=== PATIENT | male | born 1935 | race Caucasian/White ===

== ENCOUNTER → 2019-09-22 | Outpatient (RCR) | payer MEDICARE ==
[~2019-09-22] MED LIST: AMBIEN5 MG ORAL; ASPIR 8181 MG ORAL; ATORVASTATIN CA20 MG ORAL; CEPHALEXIN500 M1 ORAL; CEPHALEXIN500 MG ORAL; DICYCLOMINE HCL10 MG ORAL; FINASTERIDE5 MG ORAL; FLOMAX0.4 MG ORAL; LISINOPRIL20 MG ORAL; METOPROLOL TART25 MG ORAL; SIMETHICONE80 MG ORAL; SYNTHROID137 MCG ORAL
== END | disposition home or self-care (01) ==
LOC: WCC 11:47
DX: S87.82XA Crushing injury of left lower leg, initial encounter (principal); I11.9 Hypertensive heart disease without heart failure; I25.10 Atherosclerotic heart disease of native coronary artery without angina pectoris; E03.9 Hypothyroidism, unspecified; H91.90 Unspecified hearing loss, unspecified ear; R42 Dizziness and giddiness; Z79.899 Other long term (current) drug therapy; Z95.5 Presence of coronary angioplasty implant and graft
CPT/HCPCS: G0463

== ENCOUNTER 2019-09-24 22:19 | Emergency (ER) | payer MEDICARE, OTHER ==
[~2019-09-24] VITALS: Ht 172.7 cm; Wt 102.1 kg
[~2019-09-24 22:19] MED LIST changes: -AMBIEN5 MG ORAL; -CEPHALEXIN500 M1 ORAL
[2019-09-24 22:36] VITALS: BP 128/78
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
--- NOTE | 2019-09-24 23:05 | NUR ---
ED Nurse Note: ERMD at bedside
--- NOTE | 2019-09-24 23:07 | NUR ---
ED Nurse Note: Pt states that he does not want to be admitted to the hospital. ERMD made aware; awaiting ERMD bedside visit
--- NOTE | 2019-09-24 23:20 | NUR ---
ED Nurse Note: All blood work sent to lab
[2019-09-24 23:51] LABS: BASOPHILS % (AUTO) 0.5 % (0.0-2.0); EOSINOPHILS % (AUTO) 3.8 % (0.0-3.0); HEMATOCRIT 34.6 % (42.0-52.0); HEMOGLOBIN 11.8 G/DL (14.2-18.0); LYMPHOCYTES % (AUTO) 22.4 % (20.0-45.0); MEAN CORPUSCULAR VOLUME 91 FL (80-99); MONOCYTES % (AUTO) 10.8 % (1.0-10.0); NEUTROPHILS % (AUTO) 62.5 % (45.0-75.0); PLATELET COUNT 170 K/UL (150-450); RED BLOOD COUNT 3.78 M/UL (4.70-6.10); RED CELL DISTRIBUTION WIDTH 13.4 % (11.6-14.8); WHITE BLOOD COUNT 5.2 K/UL (4.8-10.8)
[2019-09-25 00:08] LABS: ANION GAP 5 mmol/L (5-15); BLOOD UREA NITROGEN 17 mg/dL (7-18); CALCIUM 8.4 MG/DL (8.5-10.1); CARBON DIOXIDE 30 MMOL/L (21-32); CHLORIDE 106 MMOL/L (98-107); CREATININE 1.4 MG/DL (0.55-1.30); SODIUM 141 MMOL/L (136-145)
[2019-09-25 00:13] LABS: ALANINE AMINOTRANSFERASE 19 U/L (12-78); ALBUMIN 3.4 G/DL (3.4-5.0); ALBUMIN/GLOBULIN RATIO 0.9 (1.0-2.7); ALKALINE PHOSPHATASE 65 U/L (46-116); ASPARTATE AMINO TRANSFERASE 19 U/L (15-37); BILIRUBIN,TOTAL 0.7 MG/DL (0.2-1.0)
[2019-09-25] MEDS ORDERED: Vancomycin 1.5 GM in NS 275 ML IVPB ONE (00:15)
[2019-09-25] MEDS ORDERED: Piperacillin/Tazobactam 3.375 GM in NS 110 ML IVPB ONE (00:15)
[2019-09-25 00:30] VITALS: BP 127/82
[2019-09-25 00:45] VITALS: BP 127/82
[2019-09-25] MEDS ORDERED: CEPHALEXIN500 M1 ORAL (00:45)
--- NOTE | 2019-09-25 00:45 | NUR ---
AMA: SEE AMA FORM. Pt stated, "My leg isn't bleeding anymore so I want to go home. I don't want to stay in the hospital for no reason." ERMD aware, informed pt of risks. PT aao x 4, IV and armband were removed without complications. VSS, no s/s of distress noted. Pt was given rx and advised to speak to his surgeon in the morning.
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
[2019-09-25] MEDS ORDERED: AMBIEN5 MG ORAL (12:45)
--- NOTE | 2019-09-25 13:56 | Diagnostic Imaging Report ---
Indication: Dyspnea Comparison: 09/07/2019 A single view chest radiograph was obtained. Findings: Lungs are hypoinflated. There is pulmonary vascular congestion which is noted. The heart may be mildly enlarged. IMPRESSION: Suspected mild CHF. Correlate clinically
== END 2019-09-25 00:45 | disposition left against medical advice (07) ==
LOC: EMR 23:00
DX: L03.116 Cellulitis of left lower limb (principal); Z53.29 Procedure and treatment not carried out because of patient's decision for other reasons; I10 Essential (primary) hypertension; J45.909 Unspecified asthma, uncomplicated
CPT/HCPCS: 36415; 71045; 80053; 83605; 83690; 83735; 83880; 84100; 85025; 85610; 85651; 85730; 86140; 87040; 99283

== ENCOUNTER 2019-09-25 09:56 | Inpatient (IN) | payer MEDICARE, OTHER ==
[~2019-09-25] VITALS: Ht 175.3 cm; Wt 102.1 kg
[~2019-09-25 09:56] MED LIST changes: +CEPHALEXIN500 M1 ORAL
[2019-09-25 10:05] VITALS: BP 140/82
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
[2019-09-25 11:36] LABS: BASOPHILS % (AUTO) 0.6 % (0.0-2.0); EOSINOPHILS % (AUTO) 2.5 % (0.0-3.0); HEMATOCRIT 33.8 % (42.0-52.0); HEMOGLOBIN 11.4 G/DL (14.2-18.0); MEAN CORPUSCULAR VOLUME 92 FL (80-99); MONOCYTES % (AUTO) 10.3 % (1.0-10.0); NEUTROPHILS % (AUTO) 73.6 % (45.0-75.0); PLATELET COUNT 157 K/UL (150-450); RED BLOOD COUNT 3.69 M/UL (4.70-6.10); RED CELL DISTRIBUTION WIDTH 13.3 % (11.6-14.8); WHITE BLOOD COUNT 4.4 K/UL (4.8-10.8)
[2019-09-25 11:53] LABS: ANION GAP 5 mmol/L (5-15); BLOOD UREA NITROGEN 15 mg/dL (7-18); CALCIUM 8.7 MG/DL (8.5-10.1); CARBON DIOXIDE 31 MMOL/L (21-32); CHLORIDE 106 MMOL/L (98-107); CREATININE 1.2 MG/DL (0.55-1.30); POTASSIUM 4.3 MMOL/L (3.5-5.1); SODIUM 142 MMOL/L (136-145)
[2019-09-25 11:55] LABS: ALANINE AMINOTRANSFERASE 17 U/L (12-78); ALBUMIN 3.2 G/DL (3.4-5.0); ALBUMIN/GLOBULIN RATIO 0.9 (1.0-2.7); ALKALINE PHOSPHATASE 65 U/L (46-116); ASPARTATE AMINO TRANSFERASE 18 U/L (15-37); BILIRUBIN,TOTAL 0.6 MG/DL (0.2-1.0)
[2019-09-25] MEDS ORDERED: AMBIEN5 MG ORAL (12:45)
--- NOTE | 2019-09-25 12:54 | NUR ---
REPORT GIVEN TO [facility] PATIENT IS TO BE TRANSFERD TO ROOM 414-2 [facility]
[2019-09-25] MEDS ORDERED: DiphenhydrAMINE 25mg Tab ORAL PRN (13:00)
[2019-09-25] MEDS ORDERED: LORazepam 1mg tab ORAL PRN (13:00)
[2019-09-25] MEDS ORDERED: Milk of Magnesia 30ml Ud ORAL PRN (13:00)
[2019-09-25] MEDS ORDERED: Morphine Sulfate 2mg/ml Inj(IV/IM USE ONLY) IVP PRN (13:00)
[2019-09-25] MEDS ORDERED: Miralax 17gm pkt ORAL PRN (13:00)
[2019-09-25] MEDS ORDERED: Mylanta II UD 30ml ORAL PRN (13:00)
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
--- NOTE | 2019-09-25 14:43 | Diagnostic Imaging Report ---
Indication: Left leg pain Technique: continuous helical imaging of the left leg performed from the knee through the foot.. Coronal 2-D reformatted images were also generated. Study obtained in a Siem[employer] Sensation [address] total DLP: 587.6 mGycm CTD/vol: 9.1 mGy Comparison: None Findings: There is apparent focus of ulceration vs. site of surgery in the medial part of the left mid leg. This is about 1 cm deep within the subcutaneous fat. Correlate clinically. There is no evidence of an obvious associated abscess. There is extensive reticulation and expansion of the subcutaneous fat consistent with edema. There are superficial fluid collections noted both anterior and posterior at the interface between the subcutaneous fat and the muscular groups. The study was done without intravenous contrast. Difficult to exclude interfascial or intrafascial enhancement that would typically suggest intramuscular infection/myositis. There is no evidence of any obvious abscess within the anterior or posterior compartments of the leg. Myositis is not excludable on this study. In terms of the osseous structures, there is no fracture identified. 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 There is no obvious erosion or evidence of periostitis. IMPRESSION: Apparent skin defect, possibly a wound in the medial midportion of the left leg. No obvious associated abscess. Please correlate clinically. Generalized subcutaneous edema with superficial fluid collections along the deep subcutaneous fat at the junction between the subcutaneous fat and the anterior and posterior muscle compartments. The CT scanner at [facility] is accredited by the [employer] and the scans are performed using dose optimization techniques as appropriate to a performed exam including Automatic Exposure control.
--- NOTE | 2019-09-25 14:53 | Emergency Room Report ---
History of Present Illness General Chief Complaint: Wound Recheck/Suture Removal Source: Patient Present Illness HPI Patient presents for reevaluation of his left lower leg injury reports that the area has been improving with some of the swelling and erythema however the Wound at the midpoint had opened and now leaking Patient reports that the wound had been healing well however over the past 2 days now the area opened denies any fevers denies any chest pain or shortness of breath Denies any vomiting or diarrhea denies any recent trauma or travel other than the initial episode that resulted in the injury Allergies: Coded Allergies: No Known Allergies (Unverified , 09/06/19) Patient History Past Medical History: see triage record Reviewed Nursing Documentation: PMH: Agreed; PSxH: Agreed Nursing Documentation-PM Past Medical History: No Stated History Hx Cardiac Problems: Yes Hx Hypertension: Yes Hx Asthma: Yes Hx Diabetes: No Hx Cancer: No Hx Gastrointestinal Problems: Yes Hx Neurological Problems: No Review of Systems All Other Systems: negative except mentioned in HPI Physical Exam Vital Signs Date Time Temp Pulse Resp B/P (MAP) Pulse Ox O2 Delivery O2 Flow Rate FiO2 09/25/19 09:58 97.7 80 16 140/82 (101) 91 Room Air Sp02 EP Interpretation: reviewed, normal General Appearance: well appearing, no apparent distress Head: normocephalic, atraumatic Eyes: bilateral eye PERRL, bilateral eye EOMI ENT: hearing grossly normal, EOM grossly intact Neck: supple Respiratory: lungs clear, no rhonchi Cardiovascular #1: regular rate, rhythm Gastrointestinal: non tender, soft Genitourinary: no CVA tenderness Musculoskeletal: other - Significant edema and erythema to the lower extremity the midpoint of the scab formation does appear to have opened and there is some clear discharge noted Neurologic: alert, oriented x3 Psychiatric: normal inspection Skin: other - As above Lymphatic: no adenopathy Medical Decision Making Diagnostic Impression: Primary Impression: CELLULITIES LEFT LEG ER Course Given the history and presentation multiple differentials and consideration including but not limited to abscess, Other crush type injury pathology On recommendation of specialty consultation CT imaging is obtained patient is provided with broad-spectrum antibiotics and requires inpatient care Labs Test 09/25/19 11:08 White Blood Count 4.4 K/UL (4.8-10.8) Red Blood Count 3.69 M/UL (4.70-6.10) Hemoglobin 11.4 G/DL (14.2-18.0) Hematocrit 33.8 % (42.0-52.0) Mean Corpuscular Volume 92 FL (80-99) Mean Corpuscular Hemoglobin 30.8 PG (27.0-31.0) Mean Corpuscular Hemoglobin Concent 33.6 G/DL (32.0-36.0) Red Cell Distribution Width 13.3 % (11.6-14.8) Platelet Count 157 K/UL (150-450) Mean Platelet Volume 9.9 FL (6.5-10.1) Neutrophils (%) (Auto) 73.6 % (45.0-75.0) Lymphocytes (%) (Auto) 13.0 % (20.0-45.0) Monocytes (%) (Auto) 10.3 % (1.0-10.0) Eosinophils (%) (Auto) 2.5 % (0.0-3.0) Basophils (%) (Auto) 0.6 % (0.0-2.0) Prothrombin Time 10.6 SEC (9.30-11.50) Prothromb Time International Ratio 1.0 (0.9-1.1) Sodium Level 142 MMOL/L (136-145) Potassium Level 4.3 MMOL/L (3.5-5.1) Chloride Level 106 MMOL/L (98-107) Carbon Dioxide Level 31 MMOL/L (21-32) Anion Gap 5 mmol/L (5-15) Blood Urea Nitrogen 15 mg/dL (7-18) Creatinine 1.2 MG/DL (0.55-1.30) Estimat Glomerular Filtration Rate mL/min (>60) Glucose Level 103 MG/DL (74-106) Calcium Level 8.7 MG/DL (8.5-10.1) Total Bilirubin 0.6 MG/DL (0.2-1.0) Aspartate Amino Transf (AST/SGOT) 18 U/L (15-37) Alanine Aminotransferase (ALT/SGPT) 17 U/L (12-78) Alkaline Phosphatase 65 U/L (46-116) Total Protein 6.9 G/DL (6.4-8.2) Albumin 3.2 G/DL (3.4-5.0) Globulin 3.7 g/dL Albumin/Globulin Ratio 0.9 (1.0-2.7) Rhythm Strip Diag. Results EP Interpretation: yes Rate: 77 Rhythm: NSR, no PVC's, no ectopy CT/MRI/US Diagnostic Results CT/MRI/US Diagnostic Results : Impression CT left lower extremityIMPRESSION: Apparent skin defect, possibly a wound in the medial midportion of the left leg. No obvious associated abscess. Please correlate clinically. Last Vital Signs Date Time Temp Pulse Resp B/P (MAP) Pulse Ox O2 Delivery O2 Flow Rate FiO2 09/25/19 12:51 98.0 80 18 130/80 97 Room Air Status: improved Disposition: ADMITTED INPATIENT Condition: Serious Referrals: NON PHYSICIAN (PCP) Aurea Jeronimo DO Sep 25, 2019 14:52
--- NOTE | 2019-09-25 15:00 | NUR ---
NURSE NOTES: PT CAME FROM ER IN STABLE CONDITION. VSS. PT IS AXOX4. PT HAD LEFT LOWER ANTERIOR LEG WOUND WITH SERO-SANG DRAINAGE. NO FOUL ODOR NOTED. RN CHANGED WOUND DRESSING ORDERED BY DR BOCANEGRA. PT WAS ORIENTED TO ROOM. PT IS AMBULATORY WITH STEADY GAIT. IN NO APPARENT DISTRESS AT THIS TIME. WILL CONTINUE TO MONITOR.
[2019-09-25 16:00] VITALS: BP 115/71
--- NOTE | 2019-09-25 16:03 | Consultation ---
History of Present Illness General Date patient seen: Sep 25, 2019 Chief Complaint: Wound Recheck/Suture Removal Present Illness HPI 84 y/o M with hx of HTN presented to ED on 09/25 after a recent crush injury to his left leg about 2-3 weeks ago. Patient was being follow at the office by Dr Parham and patient had increased drainage from leg (serosanguineous) and edematous leg. Denied nausea, vomiting, diarrhea. Allergies: Coded Allergies: No Known Allergies (Unverified , 09/06/19) Medication History Scheduled Aspirin* (Aspir 81*), 81 MG ORAL DAILY, (Reported) Atorvastatin Calcium* (Atorvastatin Calcium*), 20 MG ORAL BEDTIME, (Reported) Cephalexin* (Keflex*), 500 MG ORAL EVERY 6 HOURS Cephalexin* (Keflex*), 500 MG ORAL EVERY 6 HOURS Dicyclomine Hcl* (Dicyclomine Hcl*), 10 MG ORAL QID Finasteride (Finasteride), 5 MG ORAL DAILY, (Reported) Levothyroxine Sodium (Synthroid), 137 MCG ORAL DAILY, (Reported) Lisinopril (Lisinopril*), 20 MG ORAL DAILY, (Reported) Metoprolol Tartrate* (Metoprolol Tartrate*), 25 MG ORAL EVERY 12 HOURS, ( Reported) Tamsulosin HCl (Flomax), 0.4 MG ORAL DAILY, (Reported) Scheduled PRN Simethicone* (Simethicone*), 80 MG ORAL Q8H PRN for GAS PAIN Zolpidem Tartrate* (Ambien*), 5 MG ORAL BEDTIME PRN for Insomnia, (Reported) Patient History Healthcare decision maker Resuscitation status Full Code Advanced Directive on File No Patient History Narrative Pmhx: as above Shx: reviewed Fhx: non contributory Review of Systems All Other Systems: negative except mentioned in HPI Physical Exam Physical Exam Narrative General appearance: alert, cooperative, no distress, appears stated age Head: Normocephalic, without obvious abnormality, atraumatic Eyes: conjunctivae/corneas clear. PERRL, EOM's intact. Fundi benign Throat: Lips, mucosa, and tongue normal. Teeth and gums normal Neck: supple, symmetrical, trachea midline, no adenopathy, thyroid: not enlarged, symmetric, no tenderness/mass/nodules, no carotid bruit and no JVD Lungs: clear to auscultation bilaterally Heart: regular rate and rhythm, S1, S2 normal, no murmur, click, rub or gallop Abdomen: soft, non-tender. Bowel sounds normal. No masses, no organomegaly Extremities: extremities left lower extremity edema with now a 2 cm 1 cm open wound draining serosanguineous fluid. Soft fluid collections. Nontender. No pus no signs of active infection Pulses: 2+ and symmetric Skin: Skin color, texture, turgor normal. No rashes or lesions Neurologic: Grossly normal Last 24 Hour Vital Signs Date Time Temp Pulse Resp B/P (MAP) Pulse Ox O2 Delivery O2 Flow Rate FiO2 09/25/19 15:43 Room Air 09/25/19 12:51 98.0 80 18 130/80 97 Room Air 09/25/19 10:05 97.7 87 17 140/82 94 Room Air 09/25/19 09:58 97.7 80 16 140/82 (101) 91 Room Air Laboratory Tests Test 09/25/19 11:08 White Blood Count 4.4 K/UL (4.8-10.8) L Red Blood Count 3.69 M/UL (4.70-6.10) L Hemoglobin 11.4 G/DL (14.2-18.0) L Hematocrit 33.8 % (42.0-52.0) L Mean Corpuscular Volume 92 FL (80-99) Mean Corpuscular Hemoglobin 30.8 PG (27.0-31.0) Mean Corpuscular Hemoglobin Concent 33.6 G/DL (32.0-36.0) Red Cell Distribution Width 13.3 % (11.6-14.8) Platelet Count 157 K/UL (150-450) Mean Platelet Volume 9.9 FL (6.5-10.1) Neutrophils (%) (Auto) 73.6 % (45.0-75.0) Lymphocytes (%) (Auto) 13.0 % (20.0-45.0) L Monocytes (%) (Auto) 10.3 % (1.0-10.0) H Eosinophils (%) (Auto) 2.5 % (0.0-3.0) Basophils (%) (Auto) 0.6 % (0.0-2.0) Prothrombin Time 10.6 SEC (9.30-11.50) Prothromb Time International Ratio 1.0 (0.9-1.1) Sodium Level 142 MMOL/L (136-145) Potassium Level 4.3 MMOL/L (3.5-5.1) Chloride Level 106 MMOL/L (98-107) Carbon Dioxide Level 31 MMOL/L (21-32) Anion Gap 5 mmol/L (5-15) Blood Urea Nitrogen 15 mg/dL (7-18) Creatinine 1.2 MG/DL (0.55-1.30) Estimat Glomerular Filtration Rate mL/min (>60) Glucose Level 103 MG/DL (74-106) Calcium Level 8.7 MG/DL (8.5-10.1) Total Bilirubin 0.6 MG/DL (0.2-1.0) Aspartate Amino Transf (AST/SGOT) 18 U/L (15-37) Alanine Aminotransferase (ALT/SGPT) 17 U/L (12-78) Alkaline Phosphatase 65 U/L (46-116) Total Protein 6.9 G/DL (6.4-8.2) Albumin 3.2 G/DL (3.4-5.0) L Globulin 3.7 g/dL Albumin/Globulin Ratio 0.9 (1.0-2.7) L Height (Feet): 5 Height (Inches): 9.00 Weight (Pounds): 225 Medications Current Medications Medications (Trade) Dose Ordered Sig/Casey Route PRN Reason Start Time Stop Time Status Last Admin Dose Admin Acetaminophen (Tylenol) 650 mg Q4H PRN ORAL fever 09/25/19 13:00 10/25/19 12:59 Al Hydroxide/Mg Hydroxide (Mylanta II) 30 ml Q6H PRN ORAL dyspepsia 09/25/19 13:00 10/25/19 12:59 Bisacodyl (Dulcolax) 10 mg HSPRN PRN RECTAL Constipation 09/25/19 13:00 10/25/19 12:59 Dextrose (Dextrose 50%) 25 ml Q30M PRN IV Hypoglycemia 09/25/19 13:00 10/25/19 12:59 Dextrose (Dextrose 50%) 50 ml Q30M PRN IV Hypoglycemia 09/25/19 13:00 10/25/19 12:59 Diphenhydramine HCl (Benadryl) 25 mg Q6H PRN ORAL Itching/Pruritis 09/25/19 13:00 10/25/19 12:59 Docusate Sodium (Colace) 100 mg EVERY 12 HOURS ORAL 09/25/19 21:00 10/25/19 20:59 Famotidine (Pepcid) 40 mg DAILY ORAL 09/26/19 09:00 10/26/19 08:59 Heparin Sodium (Porcine) (Heparin 5000 units/ml) 5,000 units EVERY 12 HOURS SUBQ 09/25/19 21:00 10/25/19 20:59 Lorazepam (Ativan) 1 mg Q4H PRN ORAL For Anxiety 09/25/19 13:00 10/02/19 12:59 Magnesium Hydroxide (Mom) 30 ml HSPRN PRN ORAL Constipation 09/25/19 13:00 10/25/19 12:59 Morphine Sulfate (Morphine Sulfate) 2 mg Q3H PRN IVP Moderate Pain (Pain Scale 4-6) 09/25/19 13:00 10/02/19 12:59 Ondansetron HCl (Zofran) 4 mg Q6H PRN IVP Nausea & Vomiting 09/25/19 13:00 10/25/19 12:59 Polyethylene Glycol (Miralax) 17 gm HSPRN PRN ORAL Constipation 09/25/19 13:00 10/25/19 12:59 Sodium Chloride 1,000 ml @ 50 mls/hr Q20H IVLG 09/25/19 13:51 10/25/19 13:50 09/25/19 12:00 Temazepam (Restoril) 15 mg HSPRN PRN ORAL Insomnia 09/25/19 13:00 10/02/19 12:59 Assessment/Plan Assessment/Plan: Abx: None Assessment: REcent L leg crush injury, now swelling and serosanguineous drainage- not infected -CT L leg: Apparent skin defect, possibly a wound in the medial midportion of the left leg. No obvious associated abscess. Please correlate clinically. Generalized subcutaneous edema with superficial fluid collections along the deep subcutaneous fat at the junction between the subcutaneous fat and the anterior and posterior muscle compartments. Afebrile No leukocytosis HTN Plan: -Perio-op antibiotics with Ancef at the time of surgery -f/u cx -Monitor CBC/CMP, temperatures -wound care per surgical team -Sx f/u Thank you for this consultation. Will continue to follow along with you. Discussed with Kamryn Vásquez M.D. Sep 25, 2019 16:03
--- NOTE | 2019-09-25 19:15 | NUR ---
NURSE NOTES: Received patient in bed. Awake, A/O x4. Patient is ambulatory with a steady gait. Patient denies pain at this time. On room air, no respiratory distress noted. IV in the Right hand noted with no redness or swelling, running NS at 50 mL/hr.
--- NOTE | 2019-09-25 19:24 | NUR ---
HAND-OFF: Report given to Daniel SANTANA RN.
[2019-09-25 20:00] VITALS: BP 142/74
[2019-09-25] MEDS: Docusate 100mg cap ORAL SCH (20:13)
[2019-09-25] MEDS: Heparin 5000 units/ml inj SUBQ SCH (21:00)
[2019-09-26] VITALS: BP 137/88
[2019-09-26 04:00] VITALS: BP 130/68
[2019-09-26 06:47] LABS: BASOPHILS % (AUTO) 0.5 % (0.0-2.0); EOSINOPHILS % (AUTO) 4.4 % (0.0-3.0); HEMATOCRIT 31.2 % (42.0-52.0); HEMOGLOBIN 10.7 G/DL (14.2-18.0); LYMPHOCYTES % (AUTO) 15.1 % (20.0-45.0); MEAN CORPUSCULAR VOLUME 91 FL (80-99); MONOCYTES % (AUTO) 12.9 % (1.0-10.0); PLATELET COUNT 130 K/UL (150-450); RED BLOOD COUNT 3.44 M/UL (4.70-6.10); RED CELL DISTRIBUTION WIDTH 13.5 % (11.6-14.8); WHITE BLOOD COUNT 5.1 K/UL (4.8-10.8)
[2019-09-26 07:07] LABS: ALANINE AMINOTRANSFERASE 14 U/L (12-78); ALBUMIN 2.9 G/DL (3.4-5.0); ALBUMIN/GLOBULIN RATIO 0.9 (1.0-2.7); ALKALINE PHOSPHATASE 60 U/L (46-116); ANION GAP 7 mmol/L (5-15); ASPARTATE AMINO TRANSFERASE 15 U/L (15-37); BILIRUBIN,TOTAL 0.8 MG/DL (0.2-1.0); BLOOD UREA NITROGEN 13 mg/dL (7-18); CALCIUM 8.2 MG/DL (8.5-10.1); CARBON DIOXIDE 29 MMOL/L (21-32); CHLORIDE 108 MMOL/L (98-107); CHOLESTEROL 104 MG/DL (< 200); CREATININE 1.2 MG/DL (0.55-1.30); HDL CHOLESTEROL 39 MG/DL (40-60); SODIUM 143 MMOL/L (136-145); TRIGLYCERIDES 83 MG/DL (30-150)
--- NOTE | 2019-09-26 07:17 | NUR ---
HAND-OFF: Report given to Yair LOPEZ.
[2019-09-26 07:28] LABS: PHOSPHORUS 3.3 MG/DL (2.5-4.9)
--- NOTE | 2019-09-26 07:55 | NUR ---
NURSE NOTES: PT AXOX4, CALM, RESTING IN BED. PT STATES HE HAD SEVERE PAIN LAST NIGHT, BUT DOES NOT EXPERIENCE PAIN NOW. IN NO APPARENT DISTRESS AT THSI TIME. PT AMBULATES WITH STEADY GAIT. DENIES N/V AT THIS TIME. LEFT LOWER LEG DRESSING DRY AND INTACT. WILL CONTINUE TO MONITOR.
[2019-09-26 08:00] VITALS: BP 136/65
[2019-09-26] MEDS ORDERED: Miralax 17gm pkt ORAL PRN (08:30)
[2019-09-26] MEDS ORDERED: Levothyroxine 125mcg tab ORAL SCH (09:00)
[2019-09-26] MEDS: Heparin 5000 units/ml inj SUBQ SCH (09:00)
[2019-09-26] MEDS ORDERED: Lisinopril 20mg tab ORAL SCH (09:00)
[2019-09-26] MEDS ORDERED: Aspirin Baby 81mg ORAL SCH (09:00)
[2019-09-26] MEDS: Docusate 100mg cap ORAL SCH (09:23)
--- NOTE | 2019-09-26 09:48 | NUR ---
NURSE NOTES: PER DR BOCANEGRA, PT IS CLEARED FOR DISCHARGE IF CASE MANAGEMENT CAN SET UP HOME HEALTH AGENCY TODAY.
--- NOTE | 2019-09-26 10:29 | Infectious Diseases Prog Note ---
Assessment/Plan Assessment/Plan Abx: None Assessment: REcent L leg crush injury, now swelling and serosanguineous drainage- not infected -CT L leg: Apparent skin defect, possibly a wound in the medial midportion of the left leg. No obvious associated abscess. Please correlate clinically. Generalized subcutaneous edema with superficial fluid collections along the deep subcutaneous fat at the junction between the subcutaneous fat and the anterior and posterior muscle compartments. Afebrile No leukocytosis HTN Plan: -Perio-op antibiotics with Ancef at the time of surgery -f/u cx -Monitor CBC/CMP, temperatures -wound care per surgical team -Sx f/u Thank you for this consultation. Will continue to follow along with you. Discussed with RN. Subjective Allergies: Coded Allergies: No Known Allergies (Unverified , 09/06/19) Subjective afebrile no leukocytosis Objective Vital Signs Last 24 Hour Vital Signs Date Time Temp Pulse Resp B/P (MAP) Pulse Ox O2 Delivery O2 Flow Rate FiO2 09/26/19 09:23 136/65 09/26/19 09:23 74 136/65 09/26/19 09:00 Room Air 09/26/19 08:00 98.2 74 20 136/65 (88) 94 09/26/19 04:00 97.9 79 18 130/68 (88) 94 09/26/19 00:00 97.4 92 18 137/88 (104) 92 09/25/19 20:18 Room Air 09/25/19 20:00 98.3 86 21 142/74 (96) 93 09/25/19 16:00 97.7 72 19 115/71 (86) 96 09/25/19 15:43 Room Air 09/25/19 12:51 98.0 80 18 130/80 97 Room Air Height (Feet): 5 Height (Inches): 9.00 Weight (Pounds): 225 Objective General appearance: alert, cooperative, no distress, appears stated age Head: Normocephalic, without obvious abnormality, atraumatic Eyes: conjunctivae/corneas clear. PERRL, EOM's intact. Fundi benign Throat: Lips, mucosa, and tongue normal. Teeth and gums normal Neck: supple, symmetrical, trachea midline, no adenopathy, thyroid: not enlarged, symmetric, no tenderness/mass/nodules, no carotid bruit and no JVD Lungs: clear to auscultation bilaterally Heart: regular rate and rhythm, S1, S2 normal, no murmur, click, rub or gallop Abdomen: soft, non-tender. Bowel sounds normal. No masses, no organomegaly Extremities: extremities left lower extremity edema with now a 2 cm 1 cm open wound draining serosanguineous fluid. Soft fluid collections. Nontender. No pus no signs of active infection Pulses: 2+ and symmetric Skin: Skin color, texture, turgor normal. No rashes or lesions Neurologic: Grossly normal Laboratory Tests Test 09/25/19 11:08 09/26/19 05:45 White Blood Count 4.4 K/UL (4.8-10.8) L 5.1 K/UL (4.8-10.8) Red Blood Count 3.69 M/UL (4.70-6.10) L 3.44 M/UL (4.70-6.10) L Hemoglobin 11.4 G/DL (14.2-18.0) L 10.7 G/DL (14.2-18.0) L Hematocrit 33.8 % (42.0-52.0) L 31.2 % (42.0-52.0) L Mean Corpuscular Volume 92 FL (80-99) 91 FL (80-99) Mean Corpuscular Hemoglobin 30.8 PG (27.0-31.0) 31.0 PG (27.0-31.0) Mean Corpuscular Hemoglobin Concent 33.6 G/DL (32.0-36.0) 34.1 G/DL (32.0-36.0) Red Cell Distribution Width 13.3 % (11.6-14.8) 13.5 % (11.6-14.8) Platelet Count 157 K/UL (150-450) 130 K/UL (150-450) L Mean Platelet Volume 9.9 FL (6.5-10.1) 9.5 FL (6.5-10.1) Neutrophils (%) (Auto) 73.6 % (45.0-75.0) 67.0 % (45.0-75.0) Lymphocytes (%) (Auto) 13.0 % (20.0-45.0) L 15.1 % (20.0-45.0) L Monocytes (%) (Auto) 10.3 % (1.0-10.0) H 12.9 % (1.0-10.0) H Eosinophils (%) (Auto) 2.5 % (0.0-3.0) 4.4 % (0.0-3.0) H Basophils (%) (Auto) 0.6 % (0.0-2.0) 0.5 % (0.0-2.0) Prothrombin Time 10.6 SEC (9.30-11.50) Prothromb Time International Ratio 1.0 (0.9-1.1) Sodium Level 142 MMOL/L (136-145) 143 MMOL/L (136-145) Potassium Level 4.3 MMOL/L (3.5-5.1) 4.0 MMOL/L (3.5-5.1) Chloride Level 106 MMOL/L (98-107) 108 MMOL/L (98-107) H Carbon Dioxide Level 31 MMOL/L (21-32) 29 MMOL/L (21-32) Anion Gap 5 mmol/L (5-15) 7 mmol/L (5-15) Blood Urea Nitrogen 15 mg/dL (7-18) 13 mg/dL (7-18) Creatinine 1.2 MG/DL (0.55-1.30) 1.2 MG/DL (0.55-1.30) Estimat Glomerular Filtration Rate mL/min (>60) mL/min (>60) Glucose Level 103 MG/DL (74-106) 89 MG/DL (74-106) Calcium Level 8.7 MG/DL (8.5-10.1) 8.2 MG/DL (8.5-10.1) L Total Bilirubin 0.6 MG/DL (0.2-1.0) 0.8 MG/DL (0.2-1.0) Aspartate Amino Transf (AST/SGOT) 18 U/L (15-37) 15 U/L (15-37) Alanine Aminotransferase (ALT/SGPT) 17 U/L (12-78) 14 U/L (12-78) Alkaline Phosphatase 65 U/L (46-116) 60 U/L (46-116) Total Protein 6.9 G/DL (6.4-8.2) 6.3 G/DL (6.4-8.2) L Albumin 3.2 G/DL (3.4-5.0) L 2.9 G/DL (3.4-5.0) L Globulin 3.7 g/dL 3.4 g/dL Albumin/Globulin Ratio 0.9 (1.0-2.7) L 0.9 (1.0-2.7) L Hemoglobin A1c 5.3 % (4.3-6.0) Phosphorus Level 3.3 MG/DL (2.5-4.9) Magnesium Level 1.8 MG/DL (1.8-2.4) Pro-B-Type Natriuretic Peptide 198 pg/mL (0-125) H Triglycerides Level 83 MG/DL (30-150) Cholesterol Level 104 MG/DL (< 200) LDL Cholesterol 50 mg/dL (<100) HDL Cholesterol 39 MG/DL (40-60) L Cholesterol/HDL Ratio 2.7 (3.3-4.4) L Current Medications Medications (Trade) Dose Ordered Sig/Casey Route PRN Reason Start Time Stop Time Status Last Admin Dose Admin Acetaminophen (Tylenol) 650 mg Q4H PRN ORAL fever 09/25/19 13:00 10/25/19 12:59 09/26/19 01:51 Al Hydroxide/Mg Hydroxide (Mylanta II) 30 ml Q6H PRN ORAL dyspepsia 09/25/19 13:00 10/25/19 12:59 Aspirin (ASA) 81 mg DAILY ORAL 09/26/19 09:00 10/26/19 08:59 09/26/19 09:23 Bisacodyl (Dulcolax) 10 mg HSPRN PRN RECTAL Constipation 09/25/19 13:00 10/25/19 12:59 Dextrose (Dextrose 50%) 25 ml Q30M PRN IV Hypoglycemia 09/25/19 13:00 10/25/19 12:59 Dextrose (Dextrose 50%) 50 ml Q30M PRN IV Hypoglycemia 09/25/19 13:00 10/25/19 12:59 Diphenhydramine HCl (Benadryl) 25 mg Q6H PRN ORAL Itching/Pruritis 09/25/19 13:00 10/25/19 12:59 Docusate Sodium (Colace) 100 mg EVERY 12 HOURS ORAL 09/25/19 21:00 10/25/19 20:59 09/26/19 09:23 Famotidine (Pepcid) 40 mg DAILY ORAL 09/26/19 09:00 10/26/19 08:59 09/26/19 09:23 Finasteride (Proscar) 5 mg DAILY ORAL 09/26/19 09:00 10/26/19 08:59 09/26/19 09:23 Heparin Sodium (Porcine) (Heparin 5000 units/ml) 5,000 units EVERY 12 HOURS SUBQ 09/25/19 21:00 10/25/19 20:59 Levothyroxine Sodium (Synthroid) 125 mcg DAILY@0630 ORAL 09/26/19 09:00 10/26/19 08:59 Lisinopril (PriniviL) 20 mg Q12HR ORAL 09/26/19 09:00 10/26/19 08:59 09/26/19 09:23 Lorazepam (Ativan) 1 mg Q4H PRN ORAL For Anxiety 09/25/19 13:00 10/02/19 12:59 Magnesium Hydroxide (Mom) 30 ml HSPRN PRN ORAL Constipation 09/25/19 13:00 10/25/19 12:59 09/26/19 09:23 Metoprolol Tartrate (Lopressor) 25 mg DAILY ORAL 09/26/19 09:00 10/26/19 08:59 09/26/19 09:23 Morphine Sulfate (Morphine Sulfate) 2 mg Q3H PRN IVP Moderate Pain (Pain Scale 4-6) 09/25/19 13:00 10/02/19 12:59 09/25/19 23:46 Ondansetron HCl (Zofran) 4 mg Q6H PRN IVP Nausea & Vomiting 09/25/19 13:00 10/25/19 12:59 Polyethylene Glycol (Miralax) 17 gm DAILY PRN ORAL Constipation 09/26/19 08:30 10/26/19 08:29 Sodium Chloride 1,000 ml @ 50 mls/hr Q20H IVLG 09/25/19 13:51 10/25/19 13:50 09/26/19 09:24 Tamsulosin HCl (Flomax) 0.4 mg BEDTIME ORAL 09/26/19 21:00 10/26/19 20:59 Temazepam (Restoril) 15 mg HSPRN PRN ORAL Insomnia 09/25/19 13:00 10/02/19 12:59 09/25/19 20:13 Kamryn Mercado M.D. Sep 26, 2019 10:29
--- NOTE | 2019-09-26 11:09 | Diagnostic Imaging Report ---
INDICATION: Leg pain and swelling TECHNIQUE: Grayscale and duplex Doppler imaging of the arteries in both lower extremities performed in real time from the common femoral artery to trifurcation arteries. Arterial waveform analysis and velocities measured. No ABIs were obtained. COMPARISON: None FINDINGS: Right lower extremity: Triphasic waveforms throughout. Aortoiliac disease: No evidence of high-grade stenosis or occlusion. Femoral-popliteal disease: No evidence of high-grade stenosis or occlusion. Tibial disease: No evidence of high-grade stenosis or occlusion. Left lower extremity: Aortoiliac disease: No evidence of high-grade stenosis or occlusion. Femoral-popliteal disease: No evidence of high-grade stenosis or occlusion. Biphasic waveform noted in the distal left SFA and pop. Velocities are normal. Tibial disease: Monophasic waveforms demonstrated in the left CUSTOMER SERVICE CLERK, MIRTA. IMPRESSION: Peripheral lower extremity arterial examination showing no evidence of high-grade stenosis or occlusion. Mild to moderate peripheral vascular disease may be present within the left lower extremity. Further evaluation of this with CTA or conventional angiogram may be of benefit.
[2019-09-26 12:00] VITALS: BP 144/81
--- NOTE | 2019-09-26 12:30 | NUR ---
NURSE NOTES: RN SPOKE TO CUCA MEDEL AND MADE AWARE OF CASE MANAGEMENT CONSULT ORDER TO REFER TO HOME WITH HOME HEALTH. RN LEFT MESSAGE WITH DR HOLLY REGARDING DISCHARGE ORDER AND MED RECONCILIATION.
--- NOTE | 2019-09-26 12:43 | NUR ---
DISCHARGE PLANNING: PATIENT HAS BEEN ACCEPTED FOR SERVICE TO [facility] T: [phone] WAITING FOR DC ORDER
--- NOTE | 2019-09-26 13:40 | Surgery Progress Note ---
Surgery Progress Note Subjective Additional Comments no acute events CT noted US noted duplex noted labs stable Objective Last 24 Hour Vital Signs Date Time Temp Pulse Resp B/P (MAP) Pulse Ox O2 Delivery O2 Flow Rate FiO2 09/26/19 12:00 98.1 83 20 144/81 (102) 95 09/26/19 09:23 136/65 09/26/19 09:23 74 136/65 09/26/19 09:00 Room Air 09/26/19 08:00 98.2 74 20 136/65 (88) 94 09/26/19 04:00 97.9 79 18 130/68 (88) 94 09/26/19 00:00 97.4 92 18 137/88 (104) 92 09/25/19 20:18 Room Air 09/25/19 20:00 98.3 86 21 142/74 (96) 93 09/25/19 16:00 97.7 72 19 115/71 (86) 96 09/25/19 15:43 Room Air I&O Intake and Output 09/25/19 09/26/19 19:00 07:00 Intake Total 590 ml 840 ml Balance 590 ml 840 ml Intake Oral 240 ml 240 ml IV Total 350 ml 600 ml # Voids 2 1 # Bowel Movements 3 Dressing: saturated Wound: clean Cardiovascular: RSR Respiratory: clear Abdomen: soft, non-tender, present bowel sounds, non-distended Extremities: edema, no tenderness, no cyanosis, other Laboratory Tests Test 09/26/19 05:45 White Blood Count 5.1 K/UL (4.8-10.8) Red Blood Count 3.44 M/UL (4.70-6.10) L Hemoglobin 10.7 G/DL (14.2-18.0) L Hematocrit 31.2 % (42.0-52.0) L Mean Corpuscular Volume 91 FL (80-99) Mean Corpuscular Hemoglobin 31.0 PG (27.0-31.0) Mean Corpuscular Hemoglobin Concent 34.1 G/DL (32.0-36.0) Red Cell Distribution Width 13.5 % (11.6-14.8) Platelet Count 130 K/UL (150-450) L Mean Platelet Volume 9.5 FL (6.5-10.1) Neutrophils (%) (Auto) 67.0 % (45.0-75.0) Lymphocytes (%) (Auto) 15.1 % (20.0-45.0) L Monocytes (%) (Auto) 12.9 % (1.0-10.0) H Eosinophils (%) (Auto) 4.4 % (0.0-3.0) H Basophils (%) (Auto) 0.5 % (0.0-2.0) Sodium Level 143 MMOL/L (136-145) Potassium Level 4.0 MMOL/L (3.5-5.1) Chloride Level 108 MMOL/L (98-107) H Carbon Dioxide Level 29 MMOL/L (21-32) Anion Gap 7 mmol/L (5-15) Blood Urea Nitrogen 13 mg/dL (7-18) Creatinine 1.2 MG/DL (0.55-1.30) Estimat Glomerular Filtration Rate mL/min (>60) Glucose Level 89 MG/DL (74-106) Hemoglobin A1c 5.3 % (4.3-6.0) Calcium Level 8.2 MG/DL (8.5-10.1) L Phosphorus Level 3.3 MG/DL (2.5-4.9) Magnesium Level 1.8 MG/DL (1.8-2.4) Total Bilirubin 0.8 MG/DL (0.2-1.0) Aspartate Amino Transf (AST/SGOT) 15 U/L (15-37) Alanine Aminotransferase (ALT/SGPT) 14 U/L (12-78) Alkaline Phosphatase 60 U/L (46-116) Pro-B-Type Natriuretic Peptide 198 pg/mL (0-125) H Total Protein 6.3 G/DL (6.4-8.2) L Albumin 2.9 G/DL (3.4-5.0) L Globulin 3.4 g/dL Albumin/Globulin Ratio 0.9 (1.0-2.7) L Triglycerides Level 83 MG/DL (30-150) Cholesterol Level 104 MG/DL (< 200) LDL Cholesterol 50 mg/dL (<100) HDL Cholesterol 39 MG/DL (40-60) L Cholesterol/HDL Ratio 2.7 (3.3-4.4) L Plan Problems: (1) Crushing injury of leg, left Assessment & Plan: 84-year-old male with history of a crush injury to his left lower extremity which had recovered well without complication has been in recovery since with clear care instructions. Recommendations were made patient keep his leg elevated ambulate. Follow-up as directed. Patient initially missed his first follow-up appointment and then showed up at a later date for evaluation at which time had noted to have significant improvement in his bruising and edema. 4 small sutures were removed from the prior open wound that was closed in the emergency department. Wound had been healing well at that time. Patient was to follow-up again this coming week but on Wednesday identified to have significant drainage. Now continuously draining serosanguineous fluid from the left lower extremity wound that has since opened and has significantly more edema. CT noted - no abscess. no fluid collections that are drainable. edema. calcified vessels US and duplex noted - no dvt. no high grade stenosis exam with edema. no cellulitis labs okay no surgery planned care instructions are clearly given to patient at bedside. I explained to patient that he really needs to keep his leg elevated to allow for decrease in edema. Leg wrapped with dressings. Care instructions dressings dressings given to patient clearly at bedside. Home health ordered. Recommendations for outpatient wound care made patient to schedule with [facility] but states that he may consider going to [facility] which is okay. Follow-up with my office on a weekly basis for wound check. Keep leg elevated. Spoke with patient's daughter as well explaining the above conditions and care plan. Patient had been improving but unfortunately developed significant more edema in the left lower extremity. He states that he did go to the market the other day spent a long time walking around since has noted some more swelling in the leg. Unfortunately at times noncompliant with care plan. Discharged with home health Dressings daily and as needed saturation gauze followed by [facility] Outpatient follow-up given Thank you will follow with recommendations as above becomes available Shay Parham Sep 26, 2019 13:40
--- NOTE | 2019-09-26 13:45 | NUR ---
NURSE NOTES: PER DR HOLLY, PT CAN BE DISCHARGED WITH HOME HEALTH AND TO ENDORSE MED RECONCILIATION TO DR BOCANEGRA. RN LEFT MESSAGE WITH DR BOCANEGRA REGARDING MED RECON.
--- NOTE | 2019-09-26 14:17 | Discharge Instructions ---
Discharge Instructions Discharge Instructions Follow up with: Dr. parham 10/04/2011 at 11 AM. [place] [facility] [place] MD/Return to Hospital if: worsening condition Services at Discharge: home health services Diet: regular Resume Normal Activity?: Yes Activity: okay to shower, other - keep left leg elevated above level of the heart when possible For Surgical Patients Clean and Dry: other Dressing Care: may change Elevate: left leg with pillow Contact your physician for: bleeding, pain, tenderness, redness, swelling, yellowish discharge in the op. site For Congestive Heart Failure Reminder Report to your physician any weight gain of 5 pounds or more in one week. Shay Parham Sep 26, 2019 14:17
--- NOTE | 2019-09-26 14:32 | NUR ---
PT EVALUATION/DISCHARGE NOTE Patient seen for initial evaluation. Patient demonstrates independence with bed mobility, transfers and ambulation without the use of an assistive device. Skilled inpatient PT intervention not warranted as patient is independent with all functional mobility without an AD. Patient discharged from PT, Yair LOPEZ notified. Addendum: 09/26/19 at 1434 by KEITH CONNOR PT Amended: Links added.
--- NOTE | 2019-09-26 14:55 | NUR ---
CASE MANAGEMENT: INITIAL REVIEW 84YR OLD MALE CC:WOUND RECHECK . SUTURE REMOVAL . SI:COMPLEX LEG CELLULITIS . WOUND DEHISCENCE 97.7 80 16 140/82 91% ON RA WBC 4.4 H/H 11.4/33.8 ALB 3.2 IS:IVF NS BOLUS X1.5 \:4E MED SURG UNIT PLAN: PT EVAL VENOUS DUPLEX
--- NOTE | 2019-09-26 15:20 | NUR ---
NURSE NOTES: DR BOCANEGRA WITH COMPLETED MED RECONCILIATION FOR DISCHARGE. RN COMPLETED DISCHARGE PACKET. EDUCATED PT ON DISCHARGE MEDICATIONS AND FOLLOW UP WITH PRIMARY AND DR BOCANEGRA. PT VERBALIZED UNDERSTANDING. REVIEWED BELONGINGS AT BEDSIDE, ALL ACCOUNTED. RN TO REMOVE IV ACCESS UPON DISCHARGE. AWAITING ON PT'S DAUGHTER FOR DISCHARGE, WHO IS ON HER WAY TO [employer] [facility].
[2019-09-26 16:00] VITALS: BP 144/92
--- NOTE | 2019-09-26 16:24 | NUR ---
NURSE NOTES: PT'S DTG AT BEDSIDE. IV ACCESS DISCONTINUED. IN NO APPARENT DISTRESS. PT WAS DISCHARGED IN STABLE CONDITION. PT TO FOLLOW UP WITH DR BOCANEGRA TOMORROW.
--- NOTE | 2019-09-26 17:15 | History and Physical Report ---
DATE OF ADMISSION: 09/25/2019 APPROXIMATE TIME: 1 p.m. CONSULTANTS: 1. Shay Parham M.D. 2. CHIEF COMPLAINT: Leg edema, wound dehiscence. BRIEF HISTORY: This is a 84-year-old male previously hospitalized here at [facility], apparently went to see Dr. Parham for the wound consult and wound looked dehisced. The patient was sent to [facility], diagnosed with above, admitted to medical floor. The patient was seen by Dr. Parham this morning. Currently calm, the patient in bed, left leg dressing clean and dry. No complaint. REVIEW OF SYSTEMS: No chest pain. No shortness of breath. No nausea, vomiting, or diarrhea. PAST MEDICAL HISTORY: Includes hypertension, anemia, renal insufficiency, weakness, left leg wounds and cellulitis. PAST SURGICAL HISTORY: Left knee. MEDICATIONS: Tamsulosin, famotidine, metoprolol, levothyroxine, lisinopril, finasteride, magnesium, morphine, temazepam. ALLERGIES: Denies. SOCIAL HISTORY: No smoking. No alcohol. No intravenous drug abuse. FAMILY HISTORY: Noncontributory. PHYSICAL EXAMINATION: GENERAL: Calm in bed, oriented x3, slight left leg pain. VITAL SIGNS: Temperature is 98 degrees, pulse 83, respiratory rate 20, blood pressure 144/81. CARDIOVASCULAR: No murmur. LUNGS: Distant and clear. ABDOMEN: Bowel sounds positive. Nontender. Nondistended. EXTREMITIES: No cyanosis or clubbing, 1+ edema. Left leg especially dressing clean and dry. NEUROLOGIC: The patient moves all extremities, slightly weak. LABORATORY AND DIAGNOSTIC DATA: Labs at this time show hemoglobin and hematocrit 10/31, otherwise platelets 130. Chloride 108, . Albumin 2.9. INR is 1.0. ASSESSMENT: 1. Leg edema, wound dehiscence in left leg. 2. Malnutrition. 3. Anemia. 4. Hypertension. 5. Renal insufficiency. 6. Weakness. 7. Cellulitis. PLAN: 1. Wound care. 2. Antibiotics per infectious diseases. 3. Blood pressure and pain control . 4. Resume home medications. 5. Discontinue with home health if cleared by team. 6. We will continue to follow this patient. Mumtaz Lloyd D.O. DR: Danielle JOB#: [id number] CC:
[2019-09-26] MEDS ORDERED: Tamsulosin 0.4mg cap ORAL SCH (21:00)
--- NOTE | 2019-09-27 12:36 | NUR ---
DISCHARGE PLANNED: BRITT HOLMAN TO FOLLOW PATIENT POST DC DC INSTRUCTION PROVIDED TO DEXTER: [phone] EXT 120
--- NOTE | 2019-09-28 10:58 | Discharge Summary ---
Discharge Summary Discharge Summary _ DATE OF ADMISSION: 09/25/2019 DATE OF DISCHARGE: 09/26/2019 DISCHARGED BY: Dr. Lloyd REASON FOR ADMISSION: 84 years old male with past medical history of hypertension, renal insufficiency , left leg wound presented for evaluation of left lower leg wound. Patient was recently admitted after crush injury to his left leg. At that time patient was discharged in stable condition and followed in the office with surgeon. Patient was seen in the office and sutures were removed from his prior laceration closure , which was done in emergency department . Surgeon subsequently received a call , stating that there was a serosanguineous drainage coming from the wound. Given amount of drainage , patient was advised to come to emergency room for further evaluation. Patient was afebrile , no leukocytosis . Stable hemoglobin and hematocrit: hemoglobin 11.4 hematocrit 33.8. Patient subsequently admitted for further management. CONSULTANTS: ID specialist Dr. Mercado surgery Dr. Parham [facility] COURSE: Patient admitted to medical surgical floor. CT scan of the left leg revealed apparent skin defect , possibly a wound in the medial midportion of the left leg. No obvious associated abscess. General subcutaneous edema with a superficial fluid collection. Venous duplex bilateral lower extremity revealed no evidence of acute DVT. ID specialist seen and evaluated patient. Left leg was swollen and had serosanguineous drainage , however it did not appear to be infected. Patient remained afebrile , no leukocytosis. ID specialist recommended only perioperative antibiotics with Ancef if surgery will be considered. Wound care was continued as per surgery recommendation. CAT scan was closely reviewed by surgeon . No evidence of abscess or fluid collection , that was drainable. No surgery was planned. Wound care instructions were clearly given to patient at the bedside. Patient need to keep his leg elevated to allow decrease in edema. Leg was wrapped with dressing. Home health was ordered for wound care. Home medication were resumed. Antiplatelet therapy with aspirin continued. DVT and GI prophylaxis provided. Blood pressure was managed with beta-charlie and STEPHANIE inhibitor. Flomax and Proscar continued. No evidence of urinary retention. Levothyroxine continued. Supportive care provided. Pain management was addressed as needed. Bowel regimen instituted. Hemoglobin and hematocrit were closely monitored and remained stable; prior to discharge hemoglobin 10.7, hematocrit 31.2. Patient was stable for discharge home with home health services for wound care. Due to rapid and unexpected improvement in patient condition , patient was discharged in 1 day. FINAL DIAGNOSES: Recent crushing injury of the left leg Hypertension Anemia DISCHARGE MEDICATIONS: See Medication Reconciliation list. DISCHARGE INSTRUCTIONS: Patient was discharged home with home health services to follow. Follow-up with a primary care provider in 1 week. I have been assigned to dictate discharge summary for this account. I was not involved in the patient's management. Yeny Estevez NP Sep 28, 2019 10:58
== END 2019-09-26 16:00 | disposition home health service (06) | DRG 920 ==
LOC: EMR 10:35 → EDBEDREQ 12:16 → 4E 12:45
DX: T81.33XA Disruption of traumatic injury wound repair, initial encounter (principal); E46 Unspecified protein-calorie malnutrition; Y84.8 Other medical procedures as the cause of abnormal reaction of the patient, or of later complication, without mention of misadventure at the time of the procedure; R60.0 Localized edema; I10 Essential (primary) hypertension; D64.9 Anemia, unspecified; Z79.82 Long term (current) use of aspirin; J45.909 Unspecified asthma, uncomplicated
CPT/HCPCS: 36415; 71045; 80053; 80061; 83036; 83605; 83690; 83735; 83880; 84100; 85025; 85610; 85651; 85730; 86140; 87040; 93925; 93970; 99283; 99285; G0463; J7030